=== PATIENT | male | born 1930 | race Caucasian/White ===

== ENCOUNTER 2017-05-09 09:21 | Outpatient (CLI) | payer MEDICARE, OTHER ==
--- NOTE | 2017-05-09 09:47 | RAD ---
CHEST TWO VIEWS: History: Dyspnea. Comparison: 11-23-16 FINDINGS: Cardiac silhouette and pulmonary vasculature are unremarkable. Mediastinum is midline with aortic steve cification. Linear scarring at the left base is stable. There is no confluent airspace consolidation, pneumothorax, or pleural fluid evident. Post-operative changes involve the left shoulder. IMPRESSION: 1. Atherosclerosis. 2. Chronic type findings appear stable. POS: [facility]
== END 2017-05-09 09:22 | disposition home or self-care (01) ==
LOC: RAD 09:21
PROVIDERS: ATTEND Internal Medicine Pulmonary Disease
DX: R06.00 Dyspnea, unspecified (principal); I70.90 Unspecified atherosclerosis
CPT/HCPCS: 71046

== ENCOUNTER 2017-08-28 14:41 | Inpatient (IN) | payer MEDICARE, OTHER ==
[2017-08-28] MEDS ORDERED: Albuterol Sulfate 2.5 mg/0.5 ml Neb ONE ×2 (15:10)
[2017-08-28] MEDS ORDERED: Magnesium 2 GM/NS 0.9% 100 ML 2 GM in Premix Bag 1 BAG IVPB SCH (15:15)
[2017-08-28] MEDS ORDERED: Dexamethasone 10 MG/ML VIAL ONE (15:18)
[2017-08-28 15:35] LABS: pH, Arterial 7.32 (7.35-7.45)
[2017-08-28 15:36] LABS: Analyzer IN Cardio ER; Base Excess (BEa) 1.5 mEq/L (-2.0 to +3.0); CO2 Tension 56.7 mmHg (35.0-45.0); Calcium, Ionized 1.2 mmol/L (1.12-1.30); Hemoglobin (Hb) 14.3 g/dL (14.0-18.0); O2 Tension (PaO2) 76.5 mmHg (> 60.0)
[2017-08-28 15:37] LABS: ALV-art Gradient 137.825 (0-20); Puncture Site RRA
[2017-08-28 15:48] LABS: #Eosinphils 0.2 thou/uL (0.0-0.7); #Lymphocytes 2.4 thou/uL (1.20-3.40); #Monocytes 0.7 thou/uL (0.11-0.59); #Neutrophils 7.9 thou/uL (1.40-6.50); %Basophils 0.3 % (0.0-1.0); %Eosinophils 1.9 % (0.0-10.0); %Lymphocytes 21.4 % (21.0-51.0); %Monocytes 6.6 % (0.0-10.0); %Neutrophils 69.8 % (42.0-75.0); Mean Corpuscular HGB CONC 32.1 g/dL (32.0-36.0); Mean Corpuscular Volume 93.3 fl (80.0-94.0); Mean Platelet Volume 6.8 fL (7.4-10.4); Platelet Count 217 thou/uL (130-400); RBC Distribution Width 12.3 % (11.5-14.5); Red Blood Cell (RBC) Count 5.01 mill/uL (4.70-6.10); White Blood Cell (WBC) Count 11.3 thou/uL (4.8-10.8)
[2017-08-28 15:54] LABS: Prothrombin Time 13.3 SEC (12.0-14.7)
[2017-08-28 15:55] LABS: PTT 21.8 SEC (22.9-36.1)
[2017-08-28 16:10] LABS: ALT (SGPT) 15 U/L (8-55); AST (SGOT) 18 U/L (5-34); Albumin 3.7 g/dL (3.4-4.8); Alkaline Phosphatase 73 U/L (40-150); Anion Gap 12 mmol/L (10-20); BUN (Urea Nitrogen) 16 mg/dL (8.4-25.7); Bilirubin, Total 0.3 mg/dL (0.2-1.2); CK (CPK) 116 U/L (30-200); Calc. Creatinine Clearance 0 mL/min (70-130); Calcium 8.8 mg/dL (7.8-10.44); Carbon Dioxide 25 mmol/L (23-31); Chloride 104 mmol/L (98-107); Estimated GFR-MDRD Greater than 90; Globulin 2.7 g/dL (2.4-3.5); Glucose 171 mg/dL (83-110); Lipase 29 U/L (8-78); Potassium 4.2 mmol/L (3.5-5.1); Protein, Total 6.4 g/dL (5.8-8.1); Sodium 137 mmol/L (136-145)
[2017-08-28 16:14] LABS: CKMB 2.9 ng/mL (0-6.6); Troponin I Less than 0.010 ng/mL (< 0.028)
[2017-08-28 16:17] LABS: Bilirubin Negative (Negative); Blood, Urine Trace (Negative); Clarity CLEAR (Clear); Glucose, Urine (Dipstick) Negative (Negative); Leukocyte Negative (Negative); Nitrite Negative (Negative); Protein, Urine (Dipstick) 30 mg/dL (Neg-Trace); Specific Gravity, Urine 1.019 (1.002-1.036); Urobilinogen 0.2 mg/dL (0.2-1.0)
[2017-08-28 16:19] LABS: Bacteria/HPF None Seen HPF (None Seen); Hyaline Casts/LPF 0-3 HYALINE CAST LPF (0-3 Hyaline); RBC/HPF 0-3 HPF (0-3); Squamous Epithelial 0-3 HPF (0-3); WBC/HPF 0-3 HPF (0-3)
--- NOTE | 2017-08-28 16:19 | RAD ---
PORTABLE CHEST: 08/28/17 HISTORY: Right sided rib pain. COMPARISON: 11/20/03 study. Heart size is upper limits of normal considering portable technique. There are atherosclerotic change s of the aorta. Elevation of the left hemidiaphragm. The lungs are clear of infiltrates. Postoperativ e changes of the left shoulder are seen. IMPRESSION: Borderline heart size. No acute findings. POS: [facility]
[2017-08-28] MEDS ORDERED: Albuterol Sulfate 2.5 mg/3 ml Neb NEB PRN (16:30)
[2017-08-28] MEDS ORDERED: Diltiazem HCl 125 MG, Admixture Fee 1 EACH in Sodium Chloride 0.9% 100 ML IVPB SCH (16:30)
[2017-08-28] MEDS ORDERED: cefTRIAXone\\ROCEPHIN 1 GM in Sodium Chloride 0.9% 100 ML IVPB SCH (17:00)
[2017-08-28] MEDS ORDERED: Acetaminophen 325 MG TAB PO PRN (17:05)
[2017-08-28] MEDS ORDERED: Milk Of Magnesia 30 ML UDCUP PO PRN (17:05)
[2017-08-28] MEDS ORDERED: Azithromycin 500 MG in Sodium Chloride 0.9% 250 ML 250 ML IVPB SCH (18:00)
--- NOTE | 2017-08-28 18:19 | HP ---
PRIMARY CARE PHYSICIAN: Joleen Ferrell M.D. PRESENTING COMPLAINT: Shortness of breath. HISTORY OF PRESENT ILLNESS: Mr. Lex Ruiz is an 87-year-old male with history of COPD who was i n his usual state of health until earlier today when he developed shortness of breath. According to him, he has been more active than usual for the past few days and earlier today, he was watching TV a nd suddenly was unable to breathe. He also reports some more difficulty lately with feeling unwell. He had poor appetite, but denies chest pain, fever, chills, palpitations, PND or orthopnea. He does not have any nausea, vomiting, diarrhea or constipation. He has no urinary symptom. He was brought to the emergency room where his oxygen saturation was found to be in the 70s. He was immediately st arted on BiPAP. ABG done revealed a pH of 7.32 with pCO2 of 56 and pO2 of 76.5. Serum chemistry was largely unremarkable. BNP was 112. Lactic acid was 1.2. Initial troponin was less than 0.010. In addition, he was found to be profoundly tachycardic, with EKG showing atrial fibrillation. He was t hen started on IV diltiazem drip, IV levofloxacin, one dose of Decadron and nebulizer therapy in navin tion to BiPAP. PAST MEDICAL HISTORY: COPD, Parkinson's, borderline diabetes mellitus. PAST SURGICAL HISTORY: He has had hand and nose surgery. FAMILY HISTORY: Reviewed and noncontributory. SOCIAL HISTORY: He is a former smoker and quit decades ago. Does not drink alcohol or use illicit d rugs. ALLERGIES: No known drug allergies. HOME MEDICATIONS: Acetaminophen 325 mg daily, albuterol sulfate 2 puff inhaled b.i.d., finasteride 5 mg at bedtime, prednisolone acetate 1 drop in right eye b.i.d., rifampin 300 mg b.i.d., simvastatin 10 mg at bedtime, Bactrim double strength 1 tablet b.i.d., tamsulosin hydrochloride 0.4 mg at bedtime . REVIEW OF SYSTEMS: All systems reviewed and negative except as stated in HPI. PHYSICAL EXAMINATION: VITAL SIGNS: Rate tachycardia in the 128s. Other vital signs within normal limits. GENERAL: Not in acute distress, has BiPAP in place and looks comfortable. HEENT: Normocephalic, atraumatic. No pale, anicteric. Moist mucous membranes. NECK: Supple, full range of movement. No JVD. CARDIOVASCULAR: Tachycardic, irregular rhythm. No murmurs, rubs or gallops. S1 and S2 only. RESPIRATORY: Bilateral wheezing in all lung baptiste. ABDOMEN: Soft, nontender, nondistended. Bowel sounds normoactive. MUSCULOSKELETAL: No edema. Full range of movement in all extremities. NEUROLOGIC: Alert and well oriented to time, place and person. No focal deficits. PSYCHIATRIC: Normal mood and affect. LABORATORY DATA: Labs are described above. In addition, he had a D-dimer done which was 1.76. IMAGING: Chest x-ray showed no acute abnormalities. EKG as described in HPI. ASSESSMENT AND PLAN: 1. Acute respiratory failure with hypercapnia: Patient has acute respiratory failure likely seconda ry to the chronic obstructive pulmonary disease exacerbation. He had been started on a bilevel. Blo od cultures have been taken and he has been started on IV levofloxacin as well. We will place him on p.r.n. and schedule nebulized bronchodilator therapy. He will also be admitted to the ICU as well. We will obtain ABGs in the morning and obtain Pulmonary consult. 2. Atrial fibrillation with rapid ventricular response: The patient is achieving better control sin ce the diltiazem drip has been started. We will wean off discharging drip and started on p.o. medica tions. We will obtain an echocardiogram and a Cardiology consult, and trend troponin plus obtain a T SH. 3. Parkinson's disease, patient is at his baseline. We will resume his home medications. 4. Hyperlipidemia: We will continue statins. 5. Deep venous thrombosis prophylaxis with heparin. CODE STATUS: FULL CODE. In addition, a CT angio has been ordered to rule out PE as this is a concern due to the sudden onset of his tachycardia, as well as his elevated D-dimer care. We will follow up with result and if posit katerine, we will start on anticoagulation.
[2017-08-28 18:39] VITALS: BMI 28.8
--- NOTE | 2017-08-28 18:43 | CT ---
CT ANGIOGRAM OF THE CHEST 08/28/17 HISTORY: Right sided chest pain, dyspnea. COMPARISON: None. TECHNIQUE: CT angiogram of the chest is performed in the axial plane. Three dimensional reformatted images are s ubmitted for interpretation. FINDINGS: No mediastinal mass, lymphadenopathy or hematoma. Heart is not enlarged. No significant pericardial f luid. There are coronary artery calcifications. Atherosclerosis of the aortic arch. No aneurysm, diss ection, or periaortic fat stranding. There is some reflux of contrast into the inferior vena cava suggesting mild right heart failure. Bi lateral renal cortical cysts are noted and incompletely evaluated. Otherwise, upper solid organs are grossly unremarkable. Emphysematous change of the lung parenchyma. There is consolidation with air bronchograms involving t he lingula, left and right lower lobes. Atelectasis/pneumonia is favored. No pleural effusion. No pne umothorax. Trachea and central bronchi are patent. Adequate contrast opacification of the pulmonary arterial system to the level of the segmental arteri es. No filling defect to suggest thromboembolism. IMPRESSION: 1. No evidence of pulmonary artery embolism to the level of the segmental arteries. 2. Multilobar opacification due to atelectasis or pneumonia. 3. Emphysematous changes. 4. Incompletely evaluated bilateral renal cysts. POS: [facility]
[2017-08-28 19:39] LABS: Troponin I 0.032 ng/mL (< 0.028)
[2017-08-28] MEDS: Heparin 5,000 UNITS/ML VIAL SC SCH (20:03)
[2017-08-28] MEDS: Docusate 100 MG CAP PO SCH (20:04)
[2017-08-28 22:05] LABS: Troponin I 0.033 ng/mL (< 0.028)
[2017-08-29 04:11] LABS: #Lymphocytes 0.6 thou/uL (1.20-3.40); #Monocytes 0.1 thou/uL (0.11-0.59); #Neutrophils 8.2 thou/uL (1.40-6.50); %Basophils 0.2 % (0.0-1.0); %Lymphocytes 6.9 % (21.0-51.0); %Monocytes 1.3 % (0.0-10.0); %Neutrophils 91.6 % (42.0-75.0); Hemoglobin 14.1 g/dL (14.0-18.0); Mean Corpuscular HGB CONC 31.9 g/dL (32.0-36.0); Mean Corpuscular Hemoglobin 29.5 pg (27.0-31.0); Mean Corpuscular Volume 92.5 fl (80.0-94.0); Platelet Count 207 thou/uL (130-400); RBC Distribution Width 12.3 % (11.5-14.5); Red Blood Cell (RBC) Count 4.78 mill/uL (4.70-6.10)
[2017-08-29 04:16] LABS: Hemoglobin A1c 5.9 % (4.0-6.0)
[2017-08-29 04:52] LABS: ALT (SGPT) 14 U/L (8-55); AST (SGOT) 15 U/L (5-34); Albumin 3.5 g/dL (3.4-4.8); Alkaline Phosphatase 66 U/L (40-150); Anion Gap 10 mmol/L (10-20); BUN (Urea Nitrogen) 14 mg/dL (8.4-25.7); Bilirubin, Total 0.4 mg/dL (0.2-1.2); Calc. Creatinine Clearance 83 mL/min (70-130); Calcium 8.6 mg/dL (7.8-10.44); Carbon Dioxide 26 mmol/L (23-31); Chloride 104 mmol/L (98-107); Estimated GFR-MDRD Greater than 90; Globulin 2.6 g/dL (2.4-3.5); Glucose 176 mg/dL (83-110); Potassium 4.4 mmol/L (3.5-5.1); Protein, Total 6.1 g/dL (5.8-8.1); Sodium 136 mmol/L (136-145)
[2017-08-29] MEDS: Heparin 5,000 UNITS/ML VIAL SC SCH (08:35)
[2017-08-29] MEDS: Docusate 100 MG CAP PO SCH ×2 (08:36→21:14)
[2017-08-29] MEDS ORDERED: Dronedarone HCl 400 MG TAB PO SCH (09:00)
[2017-08-29] MEDS: Enoxaparin Sodium 60 MG/0.6 ML SYRINGE SC SCH ×2 (09:12→21:14)
--- NOTE | 2017-08-29 10:18 | CON ---
DATE OF CONSULTATION: 08/29/2017 HISTORY OF PRESENT ILLNESS: An 87-year-old gentleman admitted to the hospital yesterday who presente d to the ER with shortness of breath of several days duration. He has coughing and has wheezing. Sp utum was relatively clear. His primary care doctor is Dr. Joleen Ferrell. He denied any chest pain, chills or sweats. PAST MEDICAL HISTORY: Extensively outlined; COPD, high cholesterol, hyperlipidemia. PAST SURGICAL HISTORY: Shoulder surgery, hand surgery. MEDICATIONS: Tamsulosin 0.4, Bactrim-DS, simvastatin 10 mg, Finasteride 5, albuterol inhaler. ALLERGIES: None. SOCIAL/FAMILY HISTORY: Tobacco previously, none recently. Alcohol none. REVIEW OF SYSTEMS: Otherwise, 10-point negative. PHYSICAL EXAMINATION: GENERAL: He appears to have improved this morning. VITAL SIGNS: Blood pressure is 108/52, sats 100%, respirations 15, temperature 97. CHEST: Reveals minimal wheezing bilaterally. CARDIOVASCULAR: Normal S1, S2, no gallops. ABDOMEN: Soft, no masses. LABORATORY: His white count 9000, H&H 14 and 43, platelet count 207, pO2 is 76, pCO2 of 57.32. Elec trolytes are normal. Troponin is normal. IMPRESSION: 1. Chronic obstructive pulmonary disease exacerbation. 2. Bilateral infiltrates, a little bit more pronounced in the left base. 3. Bronchitis. 4. Benign prostatic hypertrophy. Patient appears to be improved. Superimposed pneumonia seen on the CT of his chest which was clearly not visible on his routine chest x-ray. PLAN: Continue antibiotics, nebulizers and steroids, supportive care. I will follow. This is a consultation note, 70 minutes of which 50% spent in direct patient care.
--- NOTE | 2017-08-29 13:31 | PDOC.PN ---
- Subjective Encounter Start Date: 08/29/17 Encounter Start Time: 09:00 Pt seen for followup re: acute on chronic respiratory failure. Denies chest pain. Shortness fo breath is better. No nausea or vomiting. No fevers. Cough+ - Objective MAR Reviewed: Yes Vital Signs & Weight: Vital Signs (12 hours) Temp Pulse Resp BP Pulse Ox 08/29/17 12:21 83 18 99 08/29/17 11:50 97 08/29/17 11:11 98.2 F 79 18 110/60 94 L 08/29/17 08:00 97.8 F 74 18 99 08/29/17 07:25 97.8 F 74 18 108/52 L 100 08/29/17 06:23 69 16 96 08/29/17 06:20 69 16 100 08/29/17 03:53 97.6 F 72 13 102/54 L 99 08/29/17 03:44 81 19 96 Weight Weight 188 lb 0.869 oz I&O: 08/28/17 08/29/17 08/30/17 06:59 06:59 06:59 Intake Total 250 251.4 Output Total 650 Balance -400 251.4 Result Diagrams: 08/29/17 03:42 08/29/17 03:42 EKG Reviewed by me: Yes (Tele: a. madai) Phys Exam - Physical Examination Constitutional: NAD HEENT: moist MMs, sclera anicteric, oral pharynx no lesions, 2+ tonsils Neck: no nodes, no JVD, supple, full ROM Respiratory: no rales, no rhonchi, wheezing present Cardiovascular: no rub, irregular S1, S2 Gastrointestinal: soft, non-tender, no distention, positive bowel sounds Neurological: moves all 4 limbs tremor, mild cogwheel rigidity Psychiatric: normal affect Deviation from normal: Oriented to person and place, not to time Dx/Plan (1) Acute on chronic respiratory failure with hypercapnia Code(s): J96.22 - ACUTE AND CHRONIC RESPIRATORY FAILURE WITH HYPERCAPNIA Status: Acute Comment: Improving, likley due to COPD exacerbation. Pt is off of BiPAP. (2) COPD exacerbation Code(s): J44.1 - CHRONIC OBSTRUCTIVE PULMONARY DISEASE W (ACUTE) EXACERBATION Status: Acute Comment: continue oxygen, steroids, bronchodilators and antibiotic. (3) Afib Code(s): I48.91 - UNSPECIFIED ATRIAL FIBRILLATION Status: Acute Comment: Pt off of diltiazem drip, await cardiology input. (4) Parkinsons disease Code(s): G20 - PARKINSON'S DISEASE Status: Chronic Comment: stable - Plan * . Review of Systems - Review of Systems Constitutional: negative: fever, chills, sweats, weakness, malaise Respiratory: Cough, Dry, SOB with Excertion. negative: Shortness of Breath, Hemoptysis, Pleuritic Pain, Sputum, Wheezing Cardiovascular: negative: chest pain, palpitations, orthopnea, paroxysmal nocturnal dyspnea, edema, light headedness Gastrointestinal: negative: Nausea, Vomiting, Abdominal Pain, Diarrhea, Constipation, Melena, Hematochezia Genitourinary: negative: Dysuria, Frequency, Incontinence, Hematuria, Retention Skin: negative: Rash, Lesions, Chandra, Bruising - Medications/Allergies Allergies/Adverse Reactions: Allergies Allergy/AdvReac Type Severity Reaction Status Date / Time No Known Allergies Allergy Verified 08/28/17 23:06 Medications: Current Medications Acetaminophen (Tylenol) 650 mg PO Q4H PRN PRN Reason: Headache/Fever or Pain Albuterol Sulfate (Ventolin) 2.5 mg NEB [id number] PRN PRN Reason: SOB &/or Wheezing Albuterol/Ipratropium (Duoneb) 3 ml NEB [id number] [facility] Last Admin: 08/29/17 12:21 Dose: 3 ml Docusate Sodium (Colace) 100 mg PO BID [facility] Last Admin: 08/29/17 08:36 Dose: Not Given Dronedarone (Multaq) 400 mg PO BID-[facility] Enoxaparin Sodium (Lovenox) 60 mg SC 0900,2100 [facility] Last Admin: 08/29/17 09:12 Dose: Not Given Finasteride (Proscar) 5 mg PO [facility] Levofloxacin 750 mg/ Device 150 mls @ 100 mls/hr IVPB Q24HR [facility] Magnesium Hydroxide (Milk Of Magnesium) 30 ml PO DAILYPRN PRN PRN Reason: Constipation Methylprednisolone Sodium Succinate (Solu-Medrol) 40 mg IVP Q6HR [facility] Last Admin: 08/29/17 11:43 Dose: 40 mg Mometasone Furoate/Formoterol Fumar (Dulera 200 Mcg/5 Mcg Inhaler) 2 puff INH BID-[facility] Simvastatin (Zocor) 10 mg PO HS [facility] Sodium Chloride (Flush - Normal Saline) 10 ml IVF Q12HR [facility] Sodium Chloride (Flush - Normal Saline) 10 ml IVF PRN PRN PRN Reason: Saline Flush Tamsulosin HCl (Flomax) 0.4 mg PO HS [facility]
--- NOTE | 2017-08-29 16:16 | CON ---
DATE OF CONSULTATION: 08/29/2017 CARDIOLOGY CONSULTATION REASON FOR CONSULTATION: Atrial fibrillation in the setting of shortness of breath, COPD exacerbatio n and possible pneumonia. HISTORY OF PRESENT ILLNESS: Mr. Ruiz is a very pleasant 87-year-old gentleman. He came to the ostal with difficulty breathing. He was at home watching TV became more short of breath. He was b rought to the emergency room and oxygen saturation was in the 70s, started on BiPAP. Arterial blood gas revealed pH 7.32, pCO2 of 56, pO2 of 76.5. BNP 112, lactic acid 1.2, initial troponin 0.010. Ryan zurita was tachycardic with a right bundle branch block as well and he was found to be in atrial fibri llation. We started on intravenous diltiazem, given Decadron nebulized therapy, levofloxacin and is feeling much better today. PAST MEDICAL HISTORY: 1. COPD. 2. Parkinson's. 3. Borderline diabetes. PAST SURGICAL HISTORY: No cardiac surgeries or operations. FAMILY HISTORY: Negative for heart disease at a young age. SOCIAL HISTORY: Former smoker, quit 20 years ago. No alcohol. ALLERGIES: None known. MEDICATIONS AT HOME: 1. Acetaminophen. 2. Albuterol. 3. Prednisolone. 4. Rifampin 300 mg twice a day. 5. Simvastatin. 6. Bactrim. 7. Tamsulosin. 8. Hydrochlorothiazide. REVIEW OF SYSTEMS: CONSTITUTIONAL: No significant weight gain or loss. VISION: No changes. HEARI NG: No changes. PULMONARY: Positive for shortness of breath. CARDIAC: No chest pain. GASTROINTE STINAL: No nausea, vomiting, diarrhea. SKIN: No rashes. NEUROLOGIC: No unilateral weakness or nu mbness. PSYCHIATRIC: No unusual depression or anxiety. HEMATOLOGIC: No unusual bruising. GENITOU RINARY: No burning with urination. PHYSICAL EXAMINATION: GENERAL: On examination, this is a pleasant elderly gentleman. He is feeling much better. He is 87 years of age, 5 feet and 8 inches tall, 188 pounds, looks frail. VITAL SIGNS: Blood pressure 108/52, pulse 74 regular. LUNGS: Expiratory wheezing. CARDIOVASCULAR: There is some irregularity to the rhythm. Heart sounds are distant. I do not hear murmur, rub or gallop. ABDOMEN: Soft, nontender, no hepatosplenomegaly. EXTREMITIES: Warm, dry, no clubbing or cyanosis. There is no significant edema. IMAGING DATA AND PERTINENT LABORATORY DATA: EKG shows bifascicular block. He had atrial fibrillatio n with a rapid rate last night. He has been in and out of atrial fibrillation since then and now is in sinus rhythm. As mentioned, BNP was slightly elevated at 112, the troponin 0.032, it is followed by 0.033. ASSESSMENT: 1. Paroxysmal atrial fibrillation. 2. Bifascicular block. 3. Chronic obstructive pulmonary disease. 4. Expiratory wheezing. PLAN: 1. We will start Multaq 400 mg twice a day. He is a poor candidate for amiodarone with lung disease with wheezing. 2. We will change to Lovenox. We will get somewhat lower doses for now as he appears to be mostly i n sinus rhythm. 3. Echocardiogram pending. 4. I will be glad to follow with you. We will need to make a decision when he leaves whether to ant icoagulate or not.
[2017-08-29] MEDS: Dronedarone HCl 400 MG TAB PO SCH (17:12)
[2017-08-29] MEDS: Mometasone/Formoterol 120 PUFF INHALER INH SCH (19:31)
[2017-08-29] MEDS: Simvastatin 20 MG TAB PO SCH (21:13)
[2017-08-29] MEDS: Tamsulosin HCl 0.4 MG CAP PO SCH (21:13)
[2017-08-29] MEDS: Finasteride 5 MG TAB PO SCH (21:14)
[2017-08-30] MEDS: Diabetic Tussin 200 MG/10 ML UDCUP PO PRN ×3 (04:15→21:22)
[2017-08-30] MEDS: Mometasone/Formoterol 120 PUFF INHALER INH SCH ×2 (07:20→19:04)
[2017-08-30] MEDS ORDERED: Potassium Chloride 20 MEQ TAB PO SCH (08:45)
--- NOTE | 2017-08-30 08:52 | PRG ---
DATE OF SERVICE: 08/30/2017 SUBJECTIVE: Mr. Ruiz is breathing better, feels better. He is back in sinus rhythm. OBJECTIVE: VITAL SIGNS: His blood pressure 147/97, pulse 83 and it is regular. LUNGS: Some mild expiratory wheezing. CARDIAC: Normal S1, normal S2. ABDOMEN: Soft and nontender. ASSESSMENT: 1. Paroxysmal atrial fibrillation, back in sinus rhythm. 2. Chronic obstructive pulmonary disease. 3. Normal left ventricular systolic function. 4. Has a BNP 137.5, likely as an element of diastolic heart failure. PLAN: 1. Continue Multaq. 2. We will need anticoagulation. He is currently on Lovenox. We will continue to do Eliquis or Xar elto when he leaves. 3. We will add furosemide and potassium.
[2017-08-30] MEDS: Dronedarone HCl 400 MG TAB PO SCH ×2 (09:22→18:06)
[2017-08-30] MEDS: Furosemide 20 MG/2 ML VIAL SLOW IVP SCH (09:22)
[2017-08-30] MEDS: Enoxaparin Sodium 60 MG/0.6 ML SYRINGE SC SCH ×2 (09:22→21:19)
[2017-08-30] MEDS: Docusate 100 MG CAP PO SCH ×2 (09:23→21:18)
--- NOTE | 2017-08-30 10:28 | PRG ---
DATE OF SERVICE: 08/30/2017 This morning he is better, he is less short of breath, less coughing. PHYSICAL EXAMINATION: VITAL SIGNS: His sats are 92% on room air, respiration rate 18, temperature 97, pulse is 104, blood pressure is 142/67. CHEST: Chest reveals extensive crackles. CARDIAC: Normal S1, S2, no gallops. ABDOMEN: Soft, without any masses. IMPRESSION: 1. Atrial fibrillation. 2. Chronic obstructive pulmonary disease. 3. Bronchitis. PLAN: Switch over to oral prednisone, continue neb treatments, Dulera. Hopefully, can be discharged home in the next 24-48 hours.
--- NOTE | 2017-08-30 15:23 | PDOC.PN ---
- Subjective Encounter Start Date: 08/30/17 Encounter Start Time: 08:20 Pt seen for followup re: acute respiratory failure. Feels better. Denies fevers or chills. Has cough. - Objective MAR Reviewed: Yes Vital Signs & Weight: Vital Signs (12 hours) Temp Pulse Resp BP Pulse Ox 08/30/17 15:12 97.2 F L 102 H 19 134/66 92 L 08/30/17 13:56 88 16 92 L 08/30/17 09:00 97.9 F 104 H 18 142/67 H 92 L 08/30/17 08:35 84 18 93 L 08/30/17 08:00 97.9 F 104 H 18 92 L 08/30/17 03:55 97.3 F L 83 17 147/97 H 93 L Weight Weight 203 lb 3.2 oz I&O: 08/29/17 08/30/17 08/31/17 06:59 06:59 06:59 Intake Total 250 1382.4 360 Output Total 650 Balance -400 1382.4 360 Result Diagrams: 08/29/17 03:42 08/29/17 03:42 EKG Reviewed by me: Yes (Tele: NSR) Phys Exam - Physical Examination Obese HEENT: moist MMs Neck: supple Respiratory: clear to auscultation bilateral Cardiovascular: RRR Gastrointestinal: soft Neurological: moves all 4 limbs Psychiatric: normal affect Skin: no rash Dx/Plan (1) Acute on chronic respiratory failure with hypercapnia Code(s): J96.22 - ACUTE AND CHRONIC RESPIRATORY FAILURE WITH HYPERCAPNIA Status: Acute Comment: Improved, due to COPD exacerbation. (2) COPD exacerbation Code(s): J44.1 - CHRONIC OBSTRUCTIVE PULMONARY DISEASE W (ACUTE) EXACERBATION Status: Acute Comment: continue oxygen, oral steroids, oral antibiotics and bronchodilators (3) Afib Code(s): I48.91 - UNSPECIFIED ATRIAL FIBRILLATION Status: Acute Comment: patient is in normal sinus rhythm (4) Parkinsons disease Code(s): G20 - PARKINSON'S DISEASE Status: Chronic Comment: stable - Plan * . Review of Systems - Review of Systems Respiratory: Cough, Dry. negative: Shortness of Breath, Hemoptysis, SOB with Excertion, Pleuritic Pain, Sputum, Wheezing Cardiovascular: negative: chest pain, palpitations, orthopnea, paroxysmal nocturnal dyspnea, edema, light headedness - Medications/Allergies Allergies/Adverse Reactions: Allergies Allergy/AdvReac Type Severity Reaction Status Date / Time No Known Allergies Allergy Verified 08/28/17 23:06 Medications: Current Medications Acetaminophen (Tylenol) 650 mg PO Q4H PRN PRN Reason: Headache/Fever or Pain Albuterol Sulfate (Ventolin) 2.5 mg NEB [id number] PRN PRN Reason: SOB &/or Wheezing Albuterol/Ipratropium (Duoneb) 3 ml NEB [id number] Last Admin: 08/30/17 13:56 Dose: 3 ml Docusate Sodium (Colace) 100 mg PO BID [facility] Last Admin: 08/30/17 09:23 Dose: Not Given Doxycycline Hyclate (Vibramycin) 100 mg PO BID [facility] Dronedarone (Multaq) 400 mg PO BID-[facility] Last Admin: 08/30/17 09:22 Dose: 400 mg Enoxaparin Sodium (Lovenox) 60 mg SC 0900,2100 [facility] Last Admin: 08/30/17 09:22 Dose: 60 mg Finasteride (Proscar) 5 mg PO HS [facility] Last Admin: 08/29/17 21:14 Dose: 5 mg Furosemide (Lasix) 20 mg SLOW IVP DAILY [facility] Last Admin: 08/30/17 09:22 Dose: 20 mg Guaifenesin (Robitussin Sf) 100 mg PO Q6H PRN PRN Reason: Cough Last Admin: 08/30/17 15:08 Dose: 100 mg Magnesium Hydroxide (Milk Of Magnesium) 30 ml PO DAILYPRN PRN PRN Reason: Constipation Mometasone Furoate/Formoterol Fumar (Dulera 200 Mcg/5 Mcg Inhaler) 2 puff INH BID-[facility] Last Admin: 08/30/17 07:20 Dose: Not Given Potassium Chloride (K-Dur) 20 meq PO QAM-[facility] Prednisone (Prednisone) 40 mg PO QAM-[facility] Simvastatin (Zocor) 10 mg PO [facility] Last Admin: 08/29/17 21:13 Dose: 10 mg Sodium Chloride (Flush - Normal Saline) 10 ml IVF Q12HR [facility] Last Admin: 08/30/17 09:23 Dose: 10 ml Sodium Chloride (Flush - Normal Saline) 10 ml IVF PRN PRN PRN Reason: Saline Flush Tamsulosin HCl (Flomax) 0.4 mg PO [facility] Last Admin: 08/29/17 21:13 Dose: 0.4 mg
[2017-08-30] MEDS: Doxycycline 100 MG CAP PO SCH (21:18)
[2017-08-30] MEDS: Simvastatin 20 MG TAB PO SCH (21:19)
[2017-08-30] MEDS: Finasteride 5 MG TAB PO SCH (21:19)
[2017-08-30] MEDS: Tamsulosin HCl 0.4 MG CAP PO SCH (21:19)
[2017-08-31 03:33] VITALS: TEMP 97.5
[2017-08-31 07:18] VITALS: BP 137/76
[2017-08-31] MEDS: Mometasone/Formoterol 120 PUFF INHALER INH SCH (07:26)
[2017-08-31] MEDS ORDERED: Potassium Chloride 20 MEQ TAB PO SCH (08:00)
[2017-08-31] MEDS ORDERED: predniSONE 20 MG TAB PO SCH (08:00)
[2017-08-31] MEDS: Enoxaparin Sodium 60 MG/0.6 ML SYRINGE SC SCH (08:04)
[2017-08-31] MEDS: Doxycycline 100 MG CAP PO SCH (08:04)
[2017-08-31] MEDS: Furosemide 20 MG/2 ML VIAL SLOW IVP SCH (08:04)
[2017-08-31] MEDS: Dronedarone HCl 400 MG TAB PO SCH (08:04)
[2017-08-31] MEDS: Docusate 100 MG CAP PO SCH (08:04)
--- NOTE | 2017-08-31 09:47 | PRG ---
DATE OF SERVICE: 08/31/2017 SUBJECTIVE: He is less short of breath, less cough and wheezing. OBJECTIVE: VITAL SIGNS: Temperature 97, pulse 86, respirations 16, sats are 92% on room air, blood pressure 137 /76. CHEST: Decreased breath sounds, minimal wheezing. CARDIAC: Normal S1, S2. No gallops. ABDOMEN: Soft, no masses. IMPRESSION: 1. Chronic obstructive pulmonary disease exacerbation. 2. Bronchitis. 3. Congestive heart failure. PLAN: He can be discharge home on Dulera, neb treatment, and tapering dose of prednisone. He is to follow up in the office in a month.
[2017-08-31 10:08] LABS: Hemoglobin 13.7 g/dL (14.0-18.0); Platelet Count 213 thou/uL (130-400)
--- NOTE | 2017-08-31 12:01 | DIS ---
PRIMARY CARE PHYSICIAN: Dr. Joleen Ferrell DATE OF ADMISSION: 08/28/2017 DATE OF DISCHARGE: 08/31/2017 ADMITTING DIAGNOSES: 1. Acute on chronic respiratory failure with hypercapnia. 2. Chronic obstructive pulmonary disease exacerbation. 3. Atrial fibrillation. CONSULTATIONS DURING THIS HOSPITALIZATION: Cardiology, Dr. Beaulieu and Pulmonology, Dr. Daniel. CONDITION OF PATIENT ON THE DAY OF DISCHARGE: Stable. I assessed Mr. Ruiz on the day of dischar . He denies any chest pain or shortness of breath. Vital signs are stable. S1 and S2 are heard, regular. Lungs are clear to auscultation bilaterally. DISCHARGE MEDICATIONS: Doxycycline 100 mg 2 times a day for 4 days, Multaq 400 mg 2 times a day, fin asteride 5 mg at bedtime, Lasix 20 mg daily, Medrol Dosepak 4 mg as directed, potassium chloride 10 m Eq daily, rivaroxaban 20 mg daily, simvastatin 10 mg at bedtime, tamsulosin 0.4 mg at bedtime, and Pr oAir HFA p.r.n. HOSPITAL COURSE: Mr. Ruiz is a pleasant 87-year-old gentleman who was admitted to [facility] on 08/28/2017 for acute on chronic respiratory failure with hypercapnia. He was initially treated with bilevel positive airway pressure machine. He was also found to be in atrial f ibrillation. He was seen by Pulmonology and Cardiology Services. He has been started on Multaq and converted to n ormal sinus rhythm. He has also been started on anticoagulation. A 2D echocardiogram showed left ventricular ejection fraction of 55-60%, mildly enlarged right ventri chica cavity, normal sized left atrium and a mildly elevated pulmonary artery pressure. BNP was mildly elevated at 137.5. He has been started on low dose furosemide for diastolic heart failure. Many thanks for allowing me to participate in your patient's care. Please feel free to contact me wi th any questions or concerns. DISCHARGE DESTINATION: Home. TOTAL AMOUNT OF TIME SPENT COORDINATING THIS DISCHARGE: 32 minutes.
[2017-08-31] MEDS ORDERED: Rivaroxaban 10 MG TAB PO SCH (17:00)
[2017-09-01] MEDS ORDERED: Potassium Chloride 10 MEQ TAB PO SCH (08:00)
[2017-09-01] MEDS ORDERED: Furosemide 20 MG TAB PO SCH (09:00)
--- NOTE | 2017-09-05 13:24 | PQF ---
LIDIAMARIA FERNNADA DAVID [id number] CLINICAL DOCUMENTATION CLARIFICATION FORM: POST DISCHARGE Please exercise your independent, professional judgment in responding to the clarification form. Clinical indicators are provided on the bottom of this form for your review Please check appropriate box(s) to clarify if the following diagnosis has been ruled in or ruled out: Pneumonia (CDI/Coding list diagnosis here) [ ] Ruled in diagnosis [ ] Continue to treat [ ] Resolved [ ] Ruled out diagnosis [ ] Cannot rule out diagnosis [ ] Other diagnosis [ X ] Unable to determine In addition, please specify: Present on Admission (POA): [ ] Yes [ ] No [ ] Unable to determine For continuity of documentation, please document condition throughout progress notes and discharge summary. Thank You. CLINICAL INDICATORS - SIGNS / SYMPTOMS / LABS "Superimposed pneumonia seen on the CT of his chest which was clearly not visibleon his routine chest x-ray." - Consult 08/29/17 WBC 11.3 08/28/17 - Labs CT 08/28/17 Multilobar opacification due to atelectasis or pneumonia. 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 All Rights Reserved Sydnee Davis, CCS, [employer], CASC [email or web address]
== END 2017-08-31 13:29 | disposition home or self-care (01) | DRG 189 ==
LOC: ERS 14:41 → IMCU/EMU 18:25 → 2NO 08-29 19:15
PROVIDERS: ADMIT Internal Medicine; ATTEND Internal Medicine
DX: J96.22 Acute and chronic respiratory failure with hypercapnia (principal); J44.1 Chronic obstructive pulmonary disease with (acute) exacerbation; I50.32 Chronic diastolic (congestive) heart failure; I45.2 Bifascicular block; G20 Parkinson's disease; E78.5 Hyperlipidemia, unspecified; I48.0 Paroxysmal atrial fibrillation; N40.0 Benign prostatic hyperplasia without lower urinary tract symptoms; Z79.51 Long term (current) use of inhaled steroids; Z79.899 Other long term (current) drug therapy
CPT/HCPCS: 36415; 71045; 71275; 80053; 81003; 81015; 82553; 82565; 82805; 83036; 83605; 83690; 83880; 84443; 84484; 85014; 85018; 85025; 85049; 85379; 85610; 85730; 87040; 87086; 93005; 93306; 94640; 94660; 96365; 96366; 96375; A4216; J0456; J1100; J1650; J1940; J1956; J2920; J3475; J7050; J7506; J7611; J7620

== ENCOUNTER 2017-09-30 15:00 | Outpatient (CLI) | payer OTHER | END 2017-09-30 15:01 | disposition home or self-care (01) | LOC: SLEEPLAB 15:00 | DX: G47.30 Sleep apnea, unspecified (principal); R06.83 Snoring; G47.33 Obstructive sleep apnea (adult) (pediatric) | CPT/HCPCS: 95806 ==